=== PATIENT | male | born 2000 | race Caucasian/White ===

== ENCOUNTER 2024-04-27 02:15 | Emergency (ER) | payer MEDICAID, SELFPAY ==
[2024-04-27 02:30] VITALS: BP 115/78; PULSE 73; RESP 20; TEMP 36.6; O2SAT 98
[2024-04-27] MEDS: FLUORESCEIN SOD 1 MG/STRIP EACH EYE (02:49)
[2024-04-27] MEDS: TETRACAINE HCL 0.5% OPHTH SOLN 4 ML BTL 1 DROP EACH EYE (02:49)
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
[2024-04-27] MEDS: ERYTHROMYCIN OPHTH OINTMENT 1 GM TUBE 1 APPLIC EACH EYE (03:05)
[2024-04-27] MEDS: TETANUS,DIPHTHERIA,AC PERTUSSIS ADULT (0.5 ML) BOOSTRIX IM (03:20)
[2024-04-27 03:56] VITALS: BP 128/86; PULSE 70; RESP 20; O2SAT 98
== END 2024-04-27 03:59 | disposition home or self-care (01) ==
PROVIDERS: Emergency Provider Student in an Organized Health Care Education/Training Program; PCP Pediatrics Adolescent Medicine
DX: S05.01XA Injury of conjunctiva and corneal abrasion without foreign body, right eye, initial encounter (principal); W50.4XXA Accidental scratch by another person, initial encounter; Z23 Encounter for immunization
CPT/HCPCS: 90471; 90715; 99283; A9270